=== PATIENT | male | born 1955 | race Caucasian/White ===

== ENCOUNTER 2016-06-10 23:57 | Inpatient (IN) | payer OTHER ==
[~2016-06-10] VITALS: Ht 172.7 cm; Wt 81.6 kg
[~2016-06-10 23:57] MED LIST: ASPI81TA2 PO; CHOL20004 PO; DOCU-170 PO; LEVE100S PO; PANT40TA4 PO; POLY119P2 PO
[2016-06-11] MEDS ORDERED: MORPHINE SULFATE INJ 4 MG/ML DISP.SYRIN ONE (01:07)
[2016-06-11] MEDS ORDERED: IV NS 0.9% 1,000 ML ONE (01:08)
[2016-06-11] MEDS ORDERED: IV SET PRIMARY 1 EA INFUS.SET MC ONE (01:08)
[2016-06-11] MEDS ORDERED: ONDANSETRON HCL/PF 4 MG/2 ML VIAL ONE (01:08)
[2016-06-11 01:17] LABS: BASOPHILS # (AUTO) 0.1 /CMM (0.0-0.2); BASOPHILS % (AUTO) 0.7 % (0.0-2.0); DIFF TOTAL % 100 %; EOSINOPHILS # (AUTO) 0.2 /CMM (0.0-0.7); EOSINOPHILS % (AUTO) 2.5 % (0.0-6.0); HEMATOCRIT 42 % (39-51); HEMOGLOBIN 13.9 g/dL (13.5-17.5); LYMPHOCYTES # (AUTO) 2.4 /CMM (0.8-4.8); LYMPHOCYTES % (AUTO) 25.1 % (20.0-44.0); MEAN CORPUSCULAR HEMOGLOBIN 30 PG (26.0-33.0); MEAN CORPUSCULAR HGB CONC 33 g/dl (31.0-36.0); MEAN CORPUSCULAR VOLUME 89 fL (80-96); MONOCYTES # (AUTO) 0.7 /CMM (0.1-1.30); MONOCYTES % (AUTO) 7.2 % (2.0-12.0); NEUTROPHILS # (AUTO) 6.2 /CMM (1.8-8.9); NEUTROPHILS % (AUTO) 64.5 % (43.0-81.0); PLATELET COUNT (AUTO) 250 /CMM (150-450); RED BLOOD CELL COUNT(AUTO) 4.67 MIL/uL (4.5-6.0); WHITE BLOOD COUNT (AUTO) 9.6 K/uL (4.3-11.0)
[2016-06-11 01:25] LABS: ANION GAP 10 (5-14); CALCIUM, SERUM 8.7 mg/dL (8.5-10.1); CARBON DIOXIDE 30 mmol/L (21-32); CHLORIDE 107 mmol/L (98-107); CREATININE 0.9 mg/dL (0.6-1.3); GFR 86 mL/min (>60); GLUCOSE 101 mg/dL (74-106); POTASSIUM 3.8 mmol/L (3.5-5.1); SODIUM SERUM 143 mmol/L (136-145); UREA NITROGEN, BLOOD 17 mg/dL (7-18)
[2016-06-11] MEDS ORDERED: ONDANSETRON HCL/PF 4 MG/2 ML VIAL IVP ONE (01:30)
[2016-06-11] MEDS ORDERED: IV NS 0.9% 1,000 ML BAG IV ONE (01:30)
[2016-06-11] MEDS ORDERED: MORPHINE SULFATE INJ 2 MG/ML DISP.SYRIN IV ONE (01:30)
[2016-06-11 01:32] LABS: ALANINE AMINOTRANSFERASE 22 U/L (12-78); ALBUMIN 3.7 g/dL (3.4-5.0); ASPARTATE AMINOTRANSFERASE 16 U/L (15-37); BILIRUBIN,DIRECT 0.1 mg/dL (0.0-0.2); BILIRUBIN,TOTAL 0.2 mg/dL (0.2-1.0); INDIRECT BILIRUBIN 0.1 mg/dL (0.0-1.1); TOTAL PROTEIN, SERUM 7.2 g/dL (6.4-8.2); TROPONIN I < 0.017 ng/mL (0.00-0.056)
[2016-06-11] MEDS ORDERED: IV NS 0.9% 1,000 ML IV PRN (05:46)
[2016-06-11] MEDS ORDERED: ONDANSETRON HCL/PF 4 MG/2 ML VIAL IVP PRN (06:00)
[2016-06-11] MEDS ORDERED: MAGNESIUM HYDROXIDE 30 ML UDC PO PRN (06:00)
[2016-06-11] MEDS ORDERED: ZOLPIDEM TARTRATE 5 MG TABLET PO PRN (06:00)
[2016-06-11] MEDS ORDERED: Z GUARD REMEDY 2 OZ OINT TP PRN (06:00)
[2016-06-11] MEDS ORDERED: MAG HYDROX/AL HYDROX/SIMETH 30 ML UDC PO PRN (06:00)
[2016-06-11 06:09] VITALS: BP 124/75
[2016-06-11] MEDS ORDERED: HYDROCODONE/APAP 5/325MG 1 EACH TABLET ONE (06:35)
[2016-06-11] MEDS: HYDROCODONE/APAP 5/325MG 1 EACH TABLET PO PRN ×2 (06:41→10:55)
[2016-06-11] MEDS ORDERED: PANTOPRAZOLE 40 MG TABLET.DR PO SCH (07:30)
[2016-06-11 08:00] VITALS: BP 115/70
[2016-06-11] MEDS ORDERED: IV SET PRIMARY PUMP SET 1 EA INFUS.SET MC ONE (09:15)
[2016-06-11] MEDS: DOCUSATE SODIUM 100 MG CAPSULE PO SCH ×2 (09:19→16:38)
[2016-06-11] MEDS: ASPIRIN 81 MG TAB.CHEW PO SCH (09:20)
[2016-06-11] MEDS: PANTOPRAZOLE 40 MG TABLET.DR PO SCH (09:20)
[2016-06-11] MEDS: CHOLECALCIFEROL 1,000 UNIT TABLET (VIT D3) PO SCH (09:20)
[2016-06-11] MEDS: POLYETHYLENE GLYCOL 3350 17 GM POWD.PACK PO SCH (09:20)
[2016-06-11] MEDS: LEVETIRACETAM SOL (5 ML) 100 MG/ML UDC PO SCH ×2 (09:20→16:38)
[2016-06-11 16:00] VITALS: BP 128/77
[2016-06-11 16:20] LABS: BASOPHILS % (AUTO) 0.6 % (0.0-2.0); DIFF TOTAL % 100 %; EOSINOPHILS # (AUTO) 0.2 /CMM (0.0-0.7); EOSINOPHILS % (AUTO) 2.5 % (0.0-6.0); HEMATOCRIT 41 % (39-51); HEMOGLOBIN 13.8 g/dL (13.5-17.5); LYMPHOCYTES # (AUTO) 2.2 /CMM (0.8-4.8); LYMPHOCYTES % (AUTO) 29.5 % (20.0-44.0); MEAN CORPUSCULAR HEMOGLOBIN 30 PG (26.0-33.0); MEAN CORPUSCULAR HGB CONC 34 g/dl (31.0-36.0); MEAN CORPUSCULAR VOLUME 89 fL (80-96); MONOCYTES # (AUTO) 0.6 /CMM (0.1-1.30); MONOCYTES % (AUTO) 7.3 % (2.0-12.0); NEUTROPHILS # (AUTO) 4.6 /CMM (1.8-8.9); NEUTROPHILS % (AUTO) 60.1 % (43.0-81.0); PLATELET COUNT (AUTO) 215 /CMM (150-450); RED BLOOD CELL COUNT(AUTO) 4.62 MIL/uL (4.5-6.0); WHITE BLOOD COUNT (AUTO) 7.6 K/uL (4.3-11.0)
[2016-06-11 16:31] LABS: CALCIUM, SERUM 8.4 mg/dL (8.5-10.1); CREATININE 0.9 mg/dL (0.6-1.3)
[2016-06-11 16:39] LABS: ALBUMIN 3.4 g/dL (3.4-5.0); BILIRUBIN,DIRECT 0.1 mg/dL (0.0-0.2); BILIRUBIN,TOTAL 0.5 mg/dL (0.2-1.0); INDIRECT BILIRUBIN 0.4 mg/dL (0.0-1.1); INR 1.05 (0.87-1.13); PROTHROMBIN TIME 11.3 SECS (9.5-12.7); TOTAL PROTEIN, SERUM 6.4 g/dL (6.4-8.2)
[2016-06-11] MEDS: HYDROMORPHONE 1 MG/1 ML DISP.SYRIN IV PRN (16:39)
[2016-06-11 16:42] LABS: LACTIC ACID 0.6 mmol/L (0.4-2.0)
[2016-06-11] MEDS: IV NS 0.9% 1,000 ML IV PRN ×2 (16:50→23:31)
[2016-06-11 20:00] VITALS: BP 107/58
[2016-06-11 20:52] LABS: ADD UA MICROSCOPIC NO; KETONES,URINE NEGATIVE (NEGATIVE); LEUKOCYTE ESTERASE ,URINE NEGATIVE (NEGATIVE)
[2016-06-12] MEDS: IV NS 0.9% 1,000 ML IV PRN ×2 (05:08→10:27)
[2016-06-12 06:10] LABS: BASOPHILS % (AUTO) 0.8 % (0.0-2.0); DIFF TOTAL % 100 %; EOSINOPHILS # (AUTO) 0.2 /CMM (0.0-0.7); EOSINOPHILS % (AUTO) 2.7 % (0.0-6.0); HEMATOCRIT 40 % (39-51); HEMOGLOBIN 13.3 g/dL (13.5-17.5); LYMPHOCYTES # (AUTO) 1.7 /CMM (0.8-4.8); LYMPHOCYTES % (AUTO) 28.7 % (20.0-44.0); MEAN CORPUSCULAR HEMOGLOBIN 30 PG (26.0-33.0); MEAN CORPUSCULAR HGB CONC 33 g/dl (31.0-36.0); MEAN CORPUSCULAR VOLUME 90 fL (80-96); MONOCYTES # (AUTO) 0.5 /CMM (0.1-1.30); MONOCYTES % (AUTO) 7.7 % (2.0-12.0); NEUTROPHILS # (AUTO) 3.5 /CMM (1.8-8.9); NEUTROPHILS % (AUTO) 60.1 % (43.0-81.0); PLATELET COUNT (AUTO) 207 /CMM (150-450); RED BLOOD CELL COUNT(AUTO) 4.51 MIL/uL (4.5-6.0); WHITE BLOOD COUNT (AUTO) 5.9 K/uL (4.3-11.0)
[2016-06-12 06:16] LABS: CALCIUM, SERUM 8.3 mg/dL (8.5-10.1); CREATININE 0.8 mg/dL (0.6-1.3); POTASSIUM 3.7 mmol/L (3.5-5.1)
[2016-06-12 06:19] LABS: INR 1.04 (0.87-1.13); PROTHROMBIN TIME 11.2 SECS (9.5-12.7)
[2016-06-12 06:24] LABS: ALBUMIN 3.1 g/dL (3.4-5.0); BILIRUBIN,DIRECT 0.1 mg/dL (0.0-0.2); BILIRUBIN,TOTAL 0.5 mg/dL (0.2-1.0); INDIRECT BILIRUBIN 0.4 mg/dL (0.0-1.1); PHOSPHORUS 3.3 mg/dL (2.5-4.9); TOTAL PROTEIN, SERUM 6.1 g/dL (6.4-8.2)
[2016-06-12 08:00] VITALS: BP 116/80
[2016-06-12] MEDS: ASPIRIN 81 MG TAB.CHEW PO SCH (09:23)
[2016-06-12] MEDS: DOCUSATE SODIUM 100 MG CAPSULE PO SCH ×2 (09:23→16:28)
[2016-06-12] MEDS: LEVETIRACETAM SOL (5 ML) 100 MG/ML UDC PO SCH ×2 (09:24→16:28)
[2016-06-12] MEDS: PANTOPRAZOLE 40 MG TABLET.DR PO SCH (09:24)
[2016-06-12] MEDS: CHOLECALCIFEROL 1,000 UNIT TABLET (VIT D3) PO SCH (09:24)
[2016-06-12] MEDS: POLYETHYLENE GLYCOL 3350 17 GM POWD.PACK PO SCH (09:24)
[2016-06-12] MEDS: HYDROMORPHONE 1 MG/1 ML DISP.SYRIN IV PRN ×2 (14:20→20:12)
[2016-06-12 16:00] VITALS: BP 141/88
[2016-06-12] MEDS: HYDROCODONE/APAP 5/325MG 1 EACH TABLET PO PRN (16:33)
[2016-06-12 16:50] VITALS: BP 141/88
[2016-06-12 20:00] VITALS: BP 131/82
[2016-06-13] MEDS: IV NS 0.9% 1,000 ML IV PRN ×2 (05:26→21:10)
[2016-06-13 08:00] VITALS: BP 118/68
[2016-06-13] MEDS: DOCUSATE SODIUM 100 MG CAPSULE PO SCH ×2 (08:35→17:37)
[2016-06-13] MEDS: PANTOPRAZOLE 40 MG TABLET.DR PO SCH (08:35)
[2016-06-13] MEDS: CHOLECALCIFEROL 1,000 UNIT TABLET (VIT D3) PO SCH (08:36)
[2016-06-13] MEDS: ASPIRIN 81 MG TAB.CHEW PO SCH (08:36)
[2016-06-13] MEDS: LEVETIRACETAM SOL (5 ML) 100 MG/ML UDC PO SCH ×2 (08:36→17:37)
[2016-06-13] MEDS: POLYETHYLENE GLYCOL 3350 17 GM POWD.PACK PO SCH (08:37)
[2016-06-13] MEDS: HYDROCODONE/APAP 5/325MG 1 EACH TABLET PO PRN ×2 (08:51→22:54)
[2016-06-13] MEDS: ACETAMINOPHEN 325 MG TABLET PO PRN (13:32)
[2016-06-13 13:39] LABS: CALCIUM, SERUM 8.5 mg/dL (8.5-10.1); POTASSIUM 3.9 mmol/L (3.5-5.1)
[2016-06-13 13:46] LABS: ALBUMIN 3.3 g/dL (3.4-5.0); BILIRUBIN,DIRECT 0.1 mg/dL (0.0-0.2); BILIRUBIN,TOTAL 0.4 mg/dL (0.2-1.0); INDIRECT BILIRUBIN 0.3 mg/dL (0.0-1.1); TOTAL PROTEIN, SERUM 6.4 g/dL (6.4-8.2)
[2016-06-13 16:00] VITALS: BP 122/69
[2016-06-13 20:00] VITALS: BP 128/72
[2016-06-14 07:13] LABS: CALCIUM, SERUM 8.5 mg/dL (8.5-10.1); CREATININE 0.9 mg/dL (0.6-1.3); POTASSIUM 3.9 mmol/L (3.5-5.1)
[2016-06-14 08:00] VITALS: BP 134/80
[2016-06-14] MEDS: LEVETIRACETAM SOL (5 ML) 100 MG/ML UDC PO SCH ×2 (08:38→16:07)
[2016-06-14] MEDS: CHOLECALCIFEROL 1,000 UNIT TABLET (VIT D3) PO SCH (08:38)
[2016-06-14] MEDS: POLYETHYLENE GLYCOL 3350 17 GM POWD.PACK PO SCH (08:39)
[2016-06-14] MEDS: DOCUSATE SODIUM 100 MG CAPSULE PO SCH ×2 (08:39→16:07)
[2016-06-14] MEDS: PANTOPRAZOLE 40 MG TABLET.DR PO SCH (08:39)
[2016-06-14] MEDS: ASPIRIN 81 MG TAB.CHEW PO SCH (08:39)
[2016-06-14] MEDS: IV NS 0.9% 1,000 ML IV PRN (08:40)
[2016-06-14] MEDS: ACETAMINOPHEN 325 MG TABLET PO PRN (16:07)
== END 2016-06-14 16:20 | DRG 439 ==
LOC: ER 06-11 00:08 → MEDSG2 06-11 05:16
PROVIDERS: ADMIT Internal Medicine; ATTEND Internal Medicine
DX: K85.90 Acute pancreatitis without necrosis or infection, unspecified (principal); J90 Pleural effusion, not elsewhere classified; G40.909 Epilepsy, unspecified, not intractable, without status epilepticus; K21.9 Gastro-esophageal reflux disease without esophagitis; M48.06 Spinal stenosis, lumbar region; Z86.73 Personal history of transient ischemic attack (TIA), and cerebral infarction without residual deficits; Z95.0 Presence of cardiac pacemaker; R47.1 Dysarthria and anarthria; J84.10 Pulmonary fibrosis, unspecified
CPT/HCPCS: 36415; 80048-TC; 80061-TC; 80076-TC; 81000-TC; 82550-TC; 83605-TC; 83690-TC; 83735-TC; 84100-TC; 84484-TC; 85025-TC; 85610-TC; 87081-TC; A4606; J1170; J1953; J2270; J2405; J7030; Z7610

== ENCOUNTER 2016-11-11 18:47 | Inpatient (IN) | payer MEDICAID, OTHER ==
[~2016-11-11] VITALS: Ht 182.9 cm; Wt 84.4 kg
--- NOTE | 2016-11-11 19:01 | NUR ---
PT SVETLANA 41 FROM [facility] FOR SOB. PT ANSWERS TO YES AND NO QUESTIONS. RR EVEN AND UNLABORED. PT 02 SAT 96% ON ROOM AIR. NO SOB NOTD. NAD NOTED. PT DENIES CP AT THIS TIME. NO NVD AT THIS TIME. PT NOT DIAPHORETIC. PT GOWNED AND PLACED ON MONITOR. IV STARTED ON LEFT FA 20G. LABS DRAWN. AND SENT TO LAB
--- NOTE | 2016-11-11 19:02 | NUR ---
PT NOTED WITH RIGHT SIDED WEAKNESS HX OF STROKE.
[2016-11-11] MEDS ORDERED: DOCU250C75 PO (19:08)
[2016-11-11] MEDS ORDERED: HYDR-3976 PO (19:08)
[2016-11-11] MEDS ORDERED: DIPH25CA6 PO (19:08)
[2016-11-11] MEDS ORDERED: MAG30ORA PO (19:08)
[2016-11-11] MEDS ORDERED: MAGN400O6 PO (19:08)
[2016-11-11] MEDS ORDERED: AMYL1CAP60 PO (19:08)
[2016-11-11] MEDS ORDERED: MELA5TAB PO (19:08)
[2016-11-11] MEDS ORDERED: FAMO20TA8 PO (19:08)
[2016-11-11] MEDS ORDERED: SIMV20TA6 PO (19:08)
[2016-11-11] MEDS ORDERED: ACET325T53 PO (19:08)
[2016-11-11 19:15] LABS: CALCIUM, SERUM 9.2 mg/dL (8.5-10.1); CARBON DIOXIDE 32 mmol/L (21-32); CHLORIDE 107 mmol/L (98-107); CREATININE 0.9 mg/dL (0.6-1.3); GLUCOSE 96 mg/dL (74-106); SODIUM SERUM 143 mmol/L (136-145); UREA NITROGEN, BLOOD 11 mg/dL (7-18)
[2016-11-11 19:16] LABS: BASOPHILS % (AUTO) 0.3 % (0.0-2.0); EOSINOPHILS # (AUTO) 0.4 /CMM (0.0-0.7); EOSINOPHILS % (AUTO) 5.2 % (0.0-6.0); HEMATOCRIT 39 % (39-51); HEMOGLOBIN 13.4 g/dL (13.5-17.5); LYMPHOCYTES # (AUTO) 2.2 /CMM (0.8-4.8); MEAN CORPUSCULAR HEMOGLOBIN 30 PG (26.0-33.0); MEAN CORPUSCULAR HGB CONC 35 g/dl (31.0-36.0); MEAN CORPUSCULAR VOLUME 88 fL (80-96); MONOCYTES # (AUTO) 0.6 /CMM (0.1-1.30); MONOCYTES % (AUTO) 7.4 % (2.0-12.0); NEUTROPHILS # (AUTO) 4.4 /CMM (1.8-8.9); NEUTROPHILS % (AUTO) 58.1 % (43.0-81.0); PLATELET COUNT (AUTO) 250 /CMM (150-450); RDW COEFFICIENT OF VARIATION 12.9 (11.5-15.0); RED BLOOD CELL COUNT(AUTO) 4.42 MIL/uL (4.5-6.0); WHITE BLOOD COUNT (AUTO) 7.6 K/uL (4.3-11.0)
[2016-11-11 19:23] LABS: TROPONIN I < 0.017 ng/mL (0.00-0.056)
[2016-11-11 19:28] LABS: B-TYPE NATRIURETIC PEPTIDE 71 PG/ML (0-125)
--- NOTE | 2016-11-11 19:31 | NUR ---
XRAY AT BEDSIDE.
--- NOTE | 2016-11-11 19:33 | NUR ---
CALLED NURSING SUP. FOR TELE BED
[2016-11-11 19:36] LABS: INR 1.02 (0.87-1.13); PROTHROMBIN TIME 10.6 SECS (9.5-12.7)
[2016-11-11] MEDS ORDERED: ASPIRIN 325 MG TABLET ONE (19:49)
--- NOTE | 2016-11-11 19:52 | NUR ---
DR.RUTHERFORD DANELLE TELEPHONE BETTING CLERK
--- NOTE | 2016-11-11 19:53 | NUR ---
DR. PRECIADO SPEAKING TO DR. JONES REGARDING ADMISSION.
[2016-11-11] MEDS ORDERED: ASPIRIN 325 MG TABLET PO ONE (20:00)
--- NOTE | 2016-11-11 20:01 | NUR ---
PT ASSIGNED TO 324-[facility].
--- NOTE | 2016-11-11 20:15 | NUR ---
REPROT GIVEN TO RN JUAN ALBERTO FOR TELE BED 328-1
--- NOTE | 2016-11-11 20:18 | NUR ---
PT TRANSFERED PER [facility]S PROTOCOL TO [facility] BED 328-2
[2016-11-11 20:25] VITALS: BP 132/84
[2016-11-11] MEDS ORDERED: ACETAMINOPHEN 325 MG TABLET PO PRN (20:30)
[2016-11-11] MEDS ORDERED: diphenhydrAMINE HCL 25 MG CAPSULE PO PRN (20:30)
[2016-11-11] MEDS ORDERED: MAG HYDROX/AL HYDROX/SIMETH 30 ML UDC PO PRN ×2 (20:30→21:00)
[2016-11-11] MEDS ORDERED: MAGNESIUM HYDROXIDE 30 ML UDC PO PRN ×2 (20:30→21:00)
--- NOTE | 2016-11-11 20:30 | NUR ---
DIESEL TECHNOLOGY INSTRUCTOR ADMIT PT ARRIVED ON UNIT. FOLLOWS SIMPLE COMMANDS AND NODS TO QUESTIONS. ASSESSMENT LIMITED DUE TO PT COGNITIVE STATUS. DENIES CP, NO S/S OF RESPIRATORY DISTRESS. NO WHEEZING SOB/NOTED. TELE SHOWS SR IN 60'S. VSS. UNSTEADY GAIT. SKIN ASSESSMENT COMPLETE. ORIENTATED TO UNIT AND CALL LIGHT. BED ALARM ON. WILL CONT TO MONITOR.
[2016-11-11] MEDS ORDERED: MORPHINE SULFATE INJ 2 MG/ML DISP.SYRIN IV PRN (21:00)
[2016-11-11] MEDS ORDERED: HYDROCODONE/APAP 5/325MG 1 EACH TABLET PO PRN (21:00)
[2016-11-11] MEDS ORDERED: ZOLPIDEM TARTRATE 5 MG TABLET PO PRN (21:00)
[2016-11-11] MEDS ORDERED: Z GUARD REMEDY 2 OZ OINT TP PRN (21:00)
[2016-11-11] MEDS ORDERED: ONDANSETRON HCL/PF 4 MG/2 ML VIAL IVP PRN (21:00)
[2016-11-11] MEDS ORDERED: Medication Not On Formulary EA (Melatonin 5 MG) PO SCH (22:00)
[2016-11-11] MEDS: DOCUSATE SODIUM 250 MG CAPSULE PO SCH (22:17)
[2016-11-11] MEDS: SIMVASTATIN 20 MG TABLET PO SCH (22:17)
[2016-11-11] MEDS: NITROGLYCERIN PACKET 1 GM PACKET TOP SCH (22:18)
[2016-11-11] MEDS: ENOXAPARIN SODIUM 40 MG/0.4 ML DISP.SYRIN SQ SCH (22:19)
[2016-11-12] VITALS: BP 136/74
[2016-11-12 04:00] VITALS: BP 112/63
[2016-11-12] MEDS: NITROGLYCERIN PACKET 1 GM PACKET TOP SCH ×3 (04:59→21:00)
--- NOTE | 2016-11-12 06:40 | NUR ---
RN NOTE NO SIGNIFICANT CHANGES AT NIGHT. PT APPEARS COMFORTABLE, NO S/S OF ANY DISTRESS AT THIS TIME. TELE SHOWS SR IN 60'S. SKIN WARM TO TOUCH, NON-DIAPHORETIC. BREATHING NON-LABORED AND EVEN. IV INTACT AND PATENT. CALL LIGHT IN REACH, WILL F/U WITH DAY SHIFT FOR [place]ER[place]T.
[2016-11-12] MEDS ORDERED: PANTOPRAZOLE 40 MG TABLET.DR PO SCH (07:30)
--- NOTE | 2016-11-12 07:30 | NUR ---
TELE / RN OPEN NOTES RECEIVED REPORT FROM TREE FELLER OPERATOR NURSE. PATIENT IS IN BED, AWAKE. ORIENTED TO NAME ONLY. BED IN LOW POSITION, LOCKED AND 2 SIDE RAILS ARE UP. 2L NC OXYGEN. WILL CONTINUE TO MONITOR AND ASSESS PATIENT THROUGH OUT MY SHIFT
[2016-11-12 07:44] LABS: BASOPHILS % (AUTO) 0.3 % (0.0-2.0); EOSINOPHILS # (AUTO) 0.3 /CMM (0.0-0.7); EOSINOPHILS % (AUTO) 3.3 % (0.0-6.0); HEMATOCRIT 39 % (39-51); HEMOGLOBIN 13.2 g/dL (13.5-17.5); LYMPHOCYTES # (AUTO) 1.6 /CMM (0.8-4.8); LYMPHOCYTES % (AUTO) 20.4 % (20.0-44.0); MEAN CORPUSCULAR HEMOGLOBIN 30 PG (26.0-33.0); MEAN CORPUSCULAR HGB CONC 34 g/dl (31.0-36.0); MEAN CORPUSCULAR VOLUME 90 fL (80-96); MONOCYTES # (AUTO) 0.6 /CMM (0.1-1.30); MONOCYTES % (AUTO) 7.2 % (2.0-12.0); NEUTROPHILS # (AUTO) 5.5 /CMM (1.8-8.9); NEUTROPHILS % (AUTO) 68.8 % (43.0-81.0); PLATELET COUNT (AUTO) 224 /CMM (150-450); RDW COEFFICIENT OF VARIATION 13.6 (11.5-15.0); RED BLOOD CELL COUNT(AUTO) 4.37 MIL/uL (4.5-6.0); WHITE BLOOD COUNT (AUTO) 7.9 K/uL (4.3-11.0)
[2016-11-12 08:00] VITALS: BP 95/61
[2016-11-12 08:00] LABS: CALCIUM, SERUM 8.5 mg/dL (8.5-10.1); CREATININE 0.7 mg/dL (0.6-1.3); MAGNESIUM 1.7 mg/dL (1.8-2.4); PHOSPHORUS 4.2 mg/dL (2.5-4.9); POTASSIUM 3.9 mmol/L (3.5-5.1)
[2016-11-12] MEDS: POTASSIUM CHLORIDE 20 MEQ TAB.PRT.SR PO SCH ×2 (10:43→10:51)
[2016-11-12] MEDS: LEVETIRACETAM SOL (5 ML) 100 MG/ML UDC PO SCH ×2 (10:44→17:05)
[2016-11-12] MEDS: CHOLECALCIFEROL 1,000 UNIT TABLET (VIT D3) PO SCH (10:44)
[2016-11-12] MEDS: POLYETHYLENE GLYCOL 3350 17 GM POWD.PACK PO SCH (10:44)
[2016-11-12] MEDS: ASPIRIN 81 MG TAB.CHEW PO SCH (10:44)
[2016-11-12] MEDS: FAMOTIDINE (20 MG) 20 MG TABLET PO SCH (10:44)
[2016-11-12] MEDS ORDERED: IV SET PRIMARY PUMP SET 1 EA INFUS.SET MC ONE (10:57)
[2016-11-12] MEDS: IV NS 0.9% 1,000 ML IV PRN (11:03)
[2016-11-12] MEDS ORDERED: SECONDARY IV SET 1 EA INFUS.SET MC ONE (12:08)
[2016-11-12] MEDS: LIPASE/PROTEASE/AMYLASE 1 EACH CAPSULE.DR PO SCH ×2 (12:15→17:05)
[2016-11-12] MEDS: Magnesium 1GM/D5W 100ML PREMIX 100 ML IV SCH ×2 (12:16→12:58)
[2016-11-12 16:00] VITALS: BP 106/63
--- NOTE | 2016-11-12 18:57 | NUR ---
RN CLOSING NOTES PATIENT IS IN BED, ALERT AND ORIENTED TO NAME, PLACE AND TIME. BED IN LOW POSITION, LOCKED AND 2 SIDE RAILS ARE UP. PATIENT KEPT CLEAN AND DRY. ALL NEEDS ANTICIPATED. NO SIGNS AND SYMPTOMS OF DISTRESS. DENIED PAIN. MAGNESIUM REPLACED. WILL ENDORSE TO COLLECTION CARD CLERK NURSE.
[2016-11-12 20:00] VITALS: BP 106/65
[2016-11-12] MEDS: SIMVASTATIN 20 MG TABLET PO SCH (21:37)
[2016-11-12] MEDS: DOCUSATE SODIUM 250 MG CAPSULE PO SCH (21:37)
[2016-11-12] MEDS: ENOXAPARIN SODIUM 40 MG/0.4 ML DISP.SYRIN SQ SCH (21:42)
[2016-11-13] MEDS ORDERED: IV NS 0.9% 1,000 ML ONE (00:11)
--- NOTE | 2016-11-13 07:45 | NUR ---
RN MS NOTES RECEIVED PATIENT IN BED, A/O X 1-2, NO APPARENT DISTRESS NOTED, DENIES CHEST PAIN, DENIES SOB. IV LINE ON LEFT FORE ARM PATENT, INFUSING NS AT 75CC/HR. ALL NEEDS MET, KEPT CLEAN AND DRY, CALL LIGHT WITHIN REACH.
[2016-11-13 08:00] VITALS: BP 100/61
[2016-11-13 08:00] LABS: BASOPHILS % (AUTO) 0.2 % (0.0-2.0); EOSINOPHILS # (AUTO) 0.2 /CMM (0.0-0.7); EOSINOPHILS % (AUTO) 2.3 % (0.0-6.0); HEMATOCRIT 42 % (39-51); LYMPHOCYTES # (AUTO) 1.7 /CMM (0.8-4.8); MEAN CORPUSCULAR HEMOGLOBIN 30 PG (26.0-33.0); MEAN CORPUSCULAR HGB CONC 33 g/dl (31.0-36.0); MEAN CORPUSCULAR VOLUME 91 fL (80-96); MONOCYTES # (AUTO) 0.6 /CMM (0.1-1.30); MONOCYTES % (AUTO) 5.5 % (2.0-12.0); NEUTROPHILS # (AUTO) 7.5 /CMM (1.8-8.9); PLATELET COUNT (AUTO) 226 /CMM (150-450); RDW COEFFICIENT OF VARIATION 13.9 (11.5-15.0); RED BLOOD CELL COUNT(AUTO) 4.68 MIL/uL (4.5-6.0)
[2016-11-13 08:19] LABS: ALBUMIN 3.4 g/dL (3.4-5.0); BILIRUBIN,TOTAL 0.4 mg/dL (0.2-1.0); CALCIUM, SERUM 8.5 mg/dL (8.5-10.1); CREATININE 0.8 mg/dL (0.6-1.3); MAGNESIUM 1.8 mg/dL (1.8-2.4); PHOSPHORUS 3.3 mg/dL (2.5-4.9); POTASSIUM 3.9 mmol/L (3.5-5.1); TOTAL PROTEIN, SERUM 7.2 g/dL (6.4-8.2)
[2016-11-13] MEDS: FAMOTIDINE (20 MG) 20 MG TABLET PO SCH (08:43)
[2016-11-13] MEDS: LIPASE/PROTEASE/AMYLASE 1 EACH CAPSULE.DR PO SCH ×3 (08:43→17:20)
[2016-11-13] MEDS: LEVETIRACETAM SOL (5 ML) 100 MG/ML UDC PO SCH ×2 (08:43→17:20)
[2016-11-13] MEDS: ASPIRIN 81 MG TAB.CHEW PO SCH (08:43)
[2016-11-13] MEDS: POLYETHYLENE GLYCOL 3350 17 GM POWD.PACK PO SCH (08:44)
[2016-11-13] MEDS: CHOLECALCIFEROL 1,000 UNIT TABLET (VIT D3) PO SCH (08:44)
--- NOTE | 2016-11-13 12:00 | NUR ---
MELISA LAWLER, POSTING MACHINE OPERATOR FOR [employer] CAME TO CHECK THE PACE MAKER. PER NURIS, THE DEVICE IS NOT FROM THEIR COMPANY. HE CALLED AND FOUND OUT THAT THE COMPANY THAT THE DEVICE BELONG TO IS [employer]. PER NURIS A REP WILL COME LATER TO DO THE CHECK.
[2016-11-13] MEDS: NITROGLYCERIN PACKET 1 GM PACKET TOP SCH ×2 (12:25→21:00)
--- NOTE | 2016-11-13 13:30 | NUR ---
MELISA MATSON NOTES RECEIVED A CALL FROM JUANA GARCIA FROM [place], WITH ETA OF 3-4 PM.
[2016-11-13] MEDS: IV NS 0.9% 1,000 ML IV PRN (14:30)
[2016-11-13 16:00] VITALS: BP 110/69
--- NOTE | 2016-11-13 18:42 | NUR ---
RN MS CLOSING NOTES PATIENT IN BED, A/O X 2, IN NO APPARENT DISTRESS, DENIES PAIN, DENIES SOB. ALL DUE MEDS GIVEN, ALL NEEDS MET. IV LINE ON LEFT FOREARM PATENT INFUSING NS AT 75ML/HR. PACE MAKER WAS CHECKED TODAY, PER JOSUE ITS WORKING FINE, COPY OF REPORT LEFT IN CHART. WILL ENDORSE CARE TO PM SHIFT.
[2016-11-13 20:00] VITALS: BP 96/55
[2016-11-13] MEDS: DOCUSATE SODIUM 250 MG CAPSULE PO SCH (21:18)
[2016-11-13] MEDS: SIMVASTATIN 20 MG TABLET PO SCH (21:18)
[2016-11-13] MEDS: ENOXAPARIN SODIUM 40 MG/0.4 ML DISP.SYRIN SQ SCH (21:24)
[2016-11-14] MEDS ORDERED: IV NS 0.9% 1,000 ML ONE (03:43)
[2016-11-14] MEDS: NITROGLYCERIN PACKET 1 GM PACKET TOP SCH ×2 (05:00→13:00)
[2016-11-14 08:00] VITALS: BP 114/71
--- NOTE | 2016-11-14 08:00 | NUR ---
MS RN RECEIVED ON BED, AWAKE,ALERT,ORIENTED X3,NOT IN ANY FORM OF DISTRESS, RESPIRATIONS EVEN AND UNLABORED,NO SOB NOTED, LUNGS ARE CLEAR,ABDOMEN SOFT,POSITIVE BOWEL SOUNDS, DENIES PAIN AT THIS TIME,NOTED TO HAVE RIGHT SIDED WEAKNESS, WILL MONITOR PATIENT'S CONDITION.
[2016-11-14] MEDS: POLYETHYLENE GLYCOL 3350 17 GM POWD.PACK PO SCH (09:44)
[2016-11-14] MEDS: CHOLECALCIFEROL 1,000 UNIT TABLET (VIT D3) PO SCH (09:44)
[2016-11-14] MEDS: FAMOTIDINE (20 MG) 20 MG TABLET PO SCH (09:44)
[2016-11-14] MEDS: ASPIRIN 81 MG TAB.CHEW PO SCH (09:44)
[2016-11-14] MEDS: LIPASE/PROTEASE/AMYLASE 1 EACH CAPSULE.DR PO SCH ×2 (09:44→13:00)
[2016-11-14] MEDS: LEVETIRACETAM SOL (5 ML) 100 MG/ML UDC PO SCH (09:44)
--- NOTE | 2016-11-14 09:50 | NUR ---
MS VINCENT BREAKFAST SERVED,DUE MEDS GIVEN TOLERATED WELL.
[2016-11-14 10:15] LABS: BASOPHILS % (AUTO) 0.3 % (0.0-2.0); EOSINOPHILS # (AUTO) 0.3 /CMM (0.0-0.7); EOSINOPHILS % (AUTO) 4.3 % (0.0-6.0); HEMATOCRIT 42 % (39-51); HEMOGLOBIN 13.9 g/dL (13.5-17.5); LYMPHOCYTES # (AUTO) 1.5 /CMM (0.8-4.8); MEAN CORPUSCULAR HEMOGLOBIN 30 PG (26.0-33.0); MEAN CORPUSCULAR HGB CONC 33 g/dl (31.0-36.0); MEAN CORPUSCULAR VOLUME 89 fL (80-96); MONOCYTES # (AUTO) 0.4 /CMM (0.1-1.30); MONOCYTES % (AUTO) 7.3 % (2.0-12.0); NEUTROPHILS # (AUTO) 3.7 /CMM (1.8-8.9); NEUTROPHILS % (AUTO) 63.1 % (43.0-81.0); PLATELET COUNT (AUTO) 203 /CMM (150-450); RDW COEFFICIENT OF VARIATION 13.9 (11.5-15.0); WHITE BLOOD COUNT (AUTO) 5.9 K/uL (4.3-11.0)
[2016-11-14 10:45] LABS: CALCIUM, SERUM 8.8 mg/dL (8.5-10.1); CREATININE 0.8 mg/dL (0.6-1.3); POTASSIUM 3.9 mmol/L (3.5-5.1)
[2016-11-14 10:50] LABS: ALBUMIN 3.2 g/dL (3.4-5.0); BILIRUBIN,TOTAL 0.3 mg/dL (0.2-1.0); MAGNESIUM 1.8 mg/dL (1.8-2.4); PHOSPHORUS 2.7 mg/dL (2.5-4.9); TOTAL PROTEIN, SERUM 6.9 g/dL (6.4-8.2)
--- NOTE | 2016-11-14 11:30 | NUR ---
MS RN WAS SEEN BY MELISSA DEJESUS, W/ ORDER TO BE DISCHARGE TODAY.
[2016-11-14 16:00] VITALS: BP 118/81
--- NOTE | 2016-11-14 17:41 | NUR ---
MS RN PATIENT WAS TRANSFERRED TO [facility],ALL NEEDS ATTENDED.
== END 2016-11-14 17:30 | DRG 203 ==
LOC: ER 18:54 → TELE 20:09 → MED 11-12 09:48
PROVIDERS: ADMIT Internal Medicine; ATTEND Internal Medicine
DX: M94.0 Chondrocostal junction syndrome [Tietze] (principal); G93.40 Encephalopathy, unspecified; I69.851 Hemiplegia and hemiparesis following other cerebrovascular disease affecting right dominant side; E53.8 Deficiency of other specified B group vitamins; E83.42 Hypomagnesemia; K86.1 Other chronic pancreatitis; G40.909 Epilepsy, unspecified, not intractable, without status epilepticus; E78.5 Hyperlipidemia, unspecified; K21.9 Gastro-esophageal reflux disease without esophagitis; M19.90 Unspecified osteoarthritis, unspecified site; Z95.0 Presence of cardiac pacemaker; R47.1 Dysarthria and anarthria
CPT/HCPCS: 36415; 71010-TC; 80048-TC; 80053-TC; 83690-TC; 83735-TC; 83880; 84100-TC; 84484-TC; 85025-TC; 85730-TC; 87081-TC; 93307-TC; 94799-TC; 97001-TC; J1650; J1953; J3475; J7030

== ENCOUNTER 2017-05-02 16:18 | Inpatient (IN) | payer MEDICAID ==
[~2017-05-02] VITALS: Ht 182.9 cm; Wt 88.9 kg
[~2017-05-02 16:18] MED LIST changes: +ACET325T53 PO; +AMYL1CAP60 PO; +DIPH25CA6 PO; -DOCU-170 PO; +DOCU250C75 PO; +FAMO20TA8 PO; +HYDR-3976 PO; +MAG30ORA PO; +MAGN400O6 PO; +MELA5TAB PO; -PANT40TA4 PO; +SIMV20TA6 PO
[2017-05-02] MEDS ORDERED: FEE PK DOSING 1 MIN EA MC ONE (16:20)
--- NOTE | 2017-05-02 16:36 | NUR ---
RECIEVED PT TO ED 02, PER EMS REPORT, [facility] CALLED 911 DUE TO AMS; MORE ALTERED THAN NORMAL, UNKNOWN BASELINE. BS-94MG/DL. PT GOWNED AND PLACED ON CONT CARDIAC MONITORING. ALL NEEDS ARE ATTENDED, KEPT WARM AND COMFORTABLE. PENDING ER MD EVALUATION
--- NOTE | 2017-05-02 16:37 | NUR ---
SEEN AND EVALUATED BY DR. OCONNELL
[2017-05-02 17:01] LABS: BASOPHILS % (AUTO) 0.5 % (0.0-2.0); EOSINOPHILS # (AUTO) 0.8 /CMM (0.0-0.7); EOSINOPHILS % (AUTO) 8.1 % (0.0-6.0); HEMATOCRIT 44 % (39-51); HEMOGLOBIN 14.8 g/dL (13.5-17.5); LYMPHOCYTES # (AUTO) 1.7 /CMM (0.8-4.8); LYMPHOCYTES % (AUTO) 17.1 % (20.0-44.0); MEAN CORPUSCULAR HEMOGLOBIN 30 PG (26.0-33.0); MEAN CORPUSCULAR HGB CONC 34 g/dl (31.0-36.0); MEAN CORPUSCULAR VOLUME 88 fL (80-96); MONOCYTES # (AUTO) 0.7 /CMM (0.1-1.30); MONOCYTES % (AUTO) 7.3 % (2.0-12.0); NEUTROPHILS # (AUTO) 6.7 /CMM (1.8-8.9); PLATELET COUNT (AUTO) 256 /CMM (150-450); RDW COEFFICIENT OF VARIATION 12.7 (11.5-15.0); RED BLOOD CELL COUNT(AUTO) 4.98 MIL/uL (4.5-6.0); WHITE BLOOD COUNT (AUTO) 9.9 K/uL (4.3-11.0)
[2017-05-02 17:10] LABS: CALCIUM, SERUM 9.8 mg/dL (8.5-10.1); CARBON DIOXIDE 23 mmol/L (21-32); CHLORIDE 104 mmol/L (98-107); CREATININE 1.1 mg/dL (0.6-1.3); GLUCOSE 103 mg/dL (74-106); POTASSIUM 3.7 mmol/L (3.5-5.1); SODIUM SERUM 141 mmol/L (136-145); UREA NITROGEN, BLOOD 17 mg/dL (7-18)
[2017-05-02 17:14] LABS: INR 0.98 (0.87-1.13); PROTHROMBIN TIME 10.2 SECS (9.5-12.7)
[2017-05-02 17:18] LABS: APPEARANCE,URINE Clear (CLEAR); BILIRUBIN,URINE Negative (NEGATIVE); BLOOD, URINE Negative Ery/uL (NEGATIVE); COLOR,URINE Yellow (YELLOW); KETONES,URINE Negative (NEGATIVE); LEUKOCYTE ESTERASE ,URINE Negative (NEGATIVE); NITRITE, URINE Negative (NEGATIVE); PH,URINE 5.5 (5.0-8.0); PROTEIN,URINE 100 mg/dl (NEGATIVE); UGLUCOSE Negative (NEGATIVE); UROBILINOGEN,URINE 0.2 EU/dL (0.2)
[2017-05-02 17:18] LABS: TROPONIN I < 0.017 ng/mL (0.00-0.056)
[2017-05-02 17:27] LABS: ALANINE AMINOTRANSFERASE 35 U/L (12-78); ALCOHOL, BLOOD < 3 mg/dL (0-0); ALKALINE PHOSPHATASE 83 U/L (46-116); ASPARTATE AMINOTRANSFERASE 25 U/L (15-37); BILIRUBIN,TOTAL 0.3 mg/dL (0.2-1.0); TOTAL PROTEIN, SERUM 7.8 g/dL (6.4-8.2)
[2017-05-02 17:33] LABS: SALICYLATE 1.5 mg/dL (2.8-20.0)
[2017-05-02 17:34] LABS: ACETAMINOPHEN < 2 ug/ml (10-30)
[2017-05-02 17:40] LABS: BACTERIA,URINE Moderate /HPF (None Seen); RBC,URINE 0-2 /HPF (0-2); SQUAMOUS EPITHELIAL CELL,UR Moderate /HPF (None Seen); WBC,URINE 0-2 /HPF (0-3)
[2017-05-02 17:41] LABS: HYALINE CASTS, URINE Rare /LPF (None Seen)
--- NOTE | 2017-05-02 18:01 | NUR ---
SHANNAN WAS PAGED
[2017-05-02] MEDS ORDERED: IV NS 0.9% 1,000 ML BAG IV ONE ×2 (18:30→19:00)
[2017-05-02] MEDS ORDERED: PIPERACILLIN /TAZOBACTAM 3.375 G in IV D5W 50 ML IV ONE (18:30)
[2017-05-02] MEDS ORDERED: VANCOMYCIN 1 GM in IV D5W 250 ML IV ONE (18:30)
--- NOTE | 2017-05-02 18:57 | NUR ---
REPORT GIVEN TO NURSE LAWRENCE FOR CONT OF CARE
[2017-05-02] MEDS ORDERED: MORPHINE SULFATE INJ 2 MG/ML DISP.SYRIN IV PRN (19:00)
[2017-05-02] MEDS ORDERED: ONDANSETRON HCL/PF 4 MG/2 ML VIAL IVP PRN (19:00)
[2017-05-02] MEDS ORDERED: MAG HYDROX/AL HYDROX/SIMETH 30 ML UDC PO PRN (19:00)
[2017-05-02] MEDS ORDERED: ACETAMINOPHEN 325 MG TABLET PO PRN ×2 (19:00)
[2017-05-02] MEDS ORDERED: LORAZEPAM INJ 2 MG/ML VIAL IVP PRN (19:00)
[2017-05-02] MEDS ORDERED: diphenhydrAMINE HCL 25 MG CAPSULE PO PRN (19:00)
--- NOTE | 2017-05-02 19:00 | NUR ---
PT APPEARS TO BE RESTING COMFORTABLY WITH NO S/S OF PAIN OR DISTRESS. PT IS ON THE MONITOR AND CONTINOUS PULSE OX.
--- NOTE | 2017-05-02 19:01 | NUR ---
PT HAS L UPPER CHEST PACEMAKER.
[2017-05-02] MEDS ORDERED: FENTANYL PF 100MCG/2ML AMPUL IV PRN (19:30)
[2017-05-02] MEDS ORDERED: HYDROCODONE/APAP 5/325MG 1 EACH TABLET PO PRN (19:30)
--- NOTE | 2017-05-02 19:51 | NUR ---
PT PULLED OUT RT HAND IV. PT WAS CLEANED AND NEW 18G IV STARTED IN LAC. BLOOD WAS DRAWN FOR THE LAB. PT IS ON THE MONITOR AND CONTINUOUS PULSE OX. PT REC'D WARM BLANKETS.
--- NOTE | 2017-05-02 20:22 | NUR ---
STARTED 1L NS BOLUS PER DR. ROSALES'S ORDER.
[2017-05-02] MEDS ORDERED: HYDROCODONE/APAP 5/325MG 1 EACH TABLET ONE (20:30)
--- NOTE | 2017-05-02 20:37 | NUR ---
PT IS C/O ABD PAIN. PT REC'D A NORCO 5/325MG PO. VSS
--- NOTE | 2017-05-02 20:59 | NUR ---
GIVING REPORT TO MELISA REED
[2017-05-02] MEDS ORDERED: HYDROCODONE/APAP 5/325MG 1 EACH TABLET PO ONE (21:00)
--- NOTE | 2017-05-02 21:15 | NUR ---
PT IS USING THE URINAL. WHEN FINISHED, PT WILL BE TRANSFERRED TO TELE.
[2017-05-02 21:25] VITALS: BP 104/59
--- NOTE | 2017-05-02 21:25 | NUR ---
ADMISSION/RN PERITONEAL DIALYSIS NOTES RECEIVED PT FROM ER VIA ALAN TO ROOM 304-1, A & O X 1, UNCLEAR SPEECH @ THIS TIME. RESP EVEN & NON LABORED. NO S/S OF PAIN, SOB, ACUTE CHANGES NOTED. IV ACCESS TO LAC & LFA, INTACT PATENT. BODY ASSESSMENT DONE & DOCUMENTED. ALL BELONGINGS ACCOUNTED FOR & DOCUMENTED BY DIRECTOR SPORTS. INCONTINENT OF B & BM. NPO PER MD DUE TO HX OF ABD PAIN @ ER. ALL ORDERS REVIEWED WITH MD. NOTED & CARRIED OUT. ON IV ATB'S. V/S WNL. ON TELE MONITORING WITH SR 62. MADE COMFORTABLE IN BED. SAFETY MEASURES IN PLACE. BED ALARM ON & IN LOW LOCKED POSITION. CALL LIGHT WITHIN REACH. WILL OBSERVE CLOSELY FOR ANY EVERETT.
--- NOTE | 2017-05-02 21:27 | NUR ---
PT TRANSPORTED TO TELE PER PROTOCOL.
[2017-05-02] MEDS ORDERED: Medication Not On Formulary EA (Melatonin 5 MG) PO SCH (22:00)
[2017-05-02] MEDS: SIMVASTATIN 20 MG TABLET PO SCH (22:50)
[2017-05-02] MEDS: DOCUSATE SODIUM 250 MG CAPSULE PO SCH (22:51)
[2017-05-02] MEDS ORDERED: PIPERACILLIN /TAZOBACTAM 3.375 G VIAL IV ONE (23:45)
[2017-05-03] VITALS: BP 126/66
--- NOTE | 2017-05-03 00:10 | NUR ---
NEW ORDER RECEIVED PATIENT IS NPO, UPON ADMISSION PER MD ORDER, ONLY BOLUS IVF GIVEN @ ER. CLARIFIED WITH DR. CARLSON & ORDERED NEW IVF ORDER AFTER REVIEWING THE LABS & V/S. NOTED & CARRIED OUT. OBSERVING THE PT CLOSELY.
[2017-05-03] MEDS: IV D5/ 0.9% NACL 1,000 ML IV PRN ×2 (00:31→23:52)
[2017-05-03] MEDS: PIPERACILLIN /TAZOBACTAM 3.375 G in IV D5W 50 ML IV SCH ×4 (00:46→20:00)
[2017-05-03 04:00] VITALS: BP_SYST 122; BP_SYST 128; BP_DIAS 61; BP_DIAS 64
[2017-05-03] MEDS: VANCOMYCIN 1 GM in IV D5W 250 ML IV SCH ×2 (06:05→18:08)
--- NOTE | 2017-05-03 06:36 | NUR ---
EMERGING TECHNOLOGIES DIRECTOR CLOSING NOTES PT SLEPT INTERMITTENTLY AT NIGHT. A & O X 1, UNCLEAR SPEECH, UNABLE TO MAKE NEEDS KNOWN @ TIMES DUE TO APHASIA. RESP EVEN & NON LABORED. NO S/S OF PAIN, SOB, ACUTE CHANGES NOTED. IV ACCESS TO LAC & LFA, INTACT PATENT, RUNNING WITH D5NS @ 70 ML/HR. INCONTINENT OF B & BM. NPO PER MD DUE TO HX OF ABD PAIN @ ER. ON IV ATB'S. V/S WNL. ON TELE MONITORING WITH SR 60, V PACING. KEPT WARM & COMFORTABLE IN BED.SAFETY MEASURES IN PLACE. BED ALARM ON & IN LOW LOCKED POSITION. CALL LIGHT WITHIN REACH. WILL ENDORSE TO AM SHIFT RN FOR CONTINUITY OF CARE.
[2017-05-03 07:03] LABS: BASOPHILS # (AUTO) 0.1 /CMM (0.0-0.2); BASOPHILS % (AUTO) 0.7 % (0.0-2.0); EOSINOPHILS # (AUTO) 0.8 /CMM (0.0-0.7); EOSINOPHILS % (AUTO) 8.2 % (0.0-6.0); HEMATOCRIT 37 % (39-51); HEMOGLOBIN 12.4 g/dL (13.5-17.5); LYMPHOCYTES # (AUTO) 1.8 /CMM (0.8-4.8); LYMPHOCYTES % (AUTO) 19.3 % (20.0-44.0); MEAN CORPUSCULAR HEMOGLOBIN 30 PG (26.0-33.0); MEAN CORPUSCULAR HGB CONC 34 g/dl (31.0-36.0); MEAN CORPUSCULAR VOLUME 89 fL (80-96); MONOCYTES # (AUTO) 0.6 /CMM (0.1-1.30); MONOCYTES % (AUTO) 6.6 % (2.0-12.0); NEUTROPHILS # (AUTO) 6.1 /CMM (1.8-8.9); NEUTROPHILS % (AUTO) 65.2 % (43.0-81.0); PLATELET COUNT (AUTO) 208 /CMM (150-450); RDW COEFFICIENT OF VARIATION 13.4 (11.5-15.0); RED BLOOD CELL COUNT(AUTO) 4.13 MIL/uL (4.5-6.0); WHITE BLOOD COUNT (AUTO) 9.4 K/uL (4.3-11.0)
[2017-05-03 07:19] LABS: TROPONIN I 0.041 ng/mL (0.00-0.056)
[2017-05-03 07:32] LABS: ALBUMIN 3.2 g/dL (3.4-5.0); BILIRUBIN,TOTAL 0.5 mg/dL (0.2-1.0); CALCIUM, SERUM 8.3 mg/dL (8.5-10.1); CREATININE 0.9 mg/dL (0.6-1.3); POTASSIUM 3.5 mmol/L (3.5-5.1); TOTAL PROTEIN, SERUM 6.3 g/dL (6.4-8.2)
[2017-05-03 08:00] VITALS: BP 129/68
--- NOTE | 2017-05-03 08:00 | NUR ---
MS RN OPENING NOTES Received patient in bed, awake, answers simple question with yes or no. No SOB noted. No sign of distress noted. IV site LAC and LFA intact, no s/sx of infiltration noted. Call light placed within reach. Will continue to monitor accordingly.Seen by PT and ST.
[2017-05-03 08:09] LABS: IRON, SERUM 109 ug/dl (50-175); TOTAL IRON BINDING CAPACITY 231 ug/dl (250-450)
[2017-05-03 08:22] LABS: FERRITIN 60 ng/mL (8-388)
[2017-05-03 09:23] LABS: INR 1.03 (0.87-1.13); PROTHROMBIN TIME 10.7 SECS (9.5-12.7)
[2017-05-03] MEDS: ASPIRIN 81 MG TAB.CHEW PO SCH (09:50)
[2017-05-03] MEDS: POLYETHYLENE GLYCOL 3350 17 GM POWD.PACK PO SCH (09:52)
[2017-05-03] MEDS: CHOLECALCIFEROL 1,000 UNIT TABLET (VIT D3) PO SCH (09:52)
[2017-05-03] MEDS: LEVETIRACETAM SOL (5 ML) 100 MG/ML UDC PO SCH ×2 (09:52→18:06)
[2017-05-03] MEDS: FAMOTIDINE (20 MG) 20 MG TABLET PO SCH (09:52)
[2017-05-03] MEDS: LIPASE/PROTEASE/AMYLASE 1 EACH CAPSULE.DR PO SCH ×3 (10:38→18:06)
[2017-05-03 16:00] VITALS: BP 129/82
--- NOTE | 2017-05-03 19:23 | NUR ---
RN CLOSING NOTES Patient in bed, awake, answers simple question with yes or no, in stable condition. No SOB noted. No signs of distress noted. IV site LAC and LFA intact, no s/sx of infiltration noted. Call light placed within reach. Needs attended. Due medications given , no ASE noted. Will continue to monitor. Endorsed to incoming shift
--- NOTE | 2017-05-03 19:30 | NUR ---
RN OPENING NOTES PATIENT IS IN BED, ALERT AND ORIENTED X1. VS STABLE. RESPIRATIONS EVEN AND UNLABORED. NO SOB NOTED. IV ACCESS ON LAC PATENT AND INTACT, INFUSING D5NS AT 75 ML/HR. NO REDNESS OR INFILTRATION NOTED. BED IN LOW AND LOCKED POSITION. SIDE RAILSX2. CALL LIGHT WITHIN EASY REACH. WILL CONTINUE TO MONITOR AND ASSESS DURING THE SHIFT.
[2017-05-03 20:00] VITALS: BP 109/67
[2017-05-03] MEDS: SIMVASTATIN 20 MG TABLET PO SCH (21:31)
[2017-05-03] MEDS: DOCUSATE SODIUM 250 MG CAPSULE PO SCH (21:31)
[2017-05-04] MEDS: PIPERACILLIN /TAZOBACTAM 3.375 G in IV D5W 50 ML IV SCH ×3 (01:40→12:50)
[2017-05-04] MEDS: VANCOMYCIN 1 GM in IV D5W 250 ML IV SCH (05:33)
--- NOTE | 2017-05-04 06:41 | NUR ---
RN CLOSING NOTES PATIENT IS SLEEPING IN BED, EASY TO AROUSE ALERT AND ORIENTED X1. NO C/O PAIN AT THIS TIME. VS STABLE. RESPIRATIONS EVEN AND UNLABORED. NO SOB NOTED. IV ACCESS ON LAF PATENT AND INTACT, INFUSING D5NS AT 75 ML/HR. NO REDNESS OR INFILTRATION NOTED. ALL NEEDS ARE MET AND MEDICATIONS GIVEN PER MD ORDER. BED IN LOW AND LOCKED POSITION. SIDE RAILSX2. CALL LIGHT WITHIN EASY REACH. WILL ENDORSE TO RN DAY SHIFT FOR CONTINUITY OF CARE
[2017-05-04 06:54] LABS: CALCIUM, SERUM 8.7 mg/dL (8.5-10.1); CREATININE 0.9 mg/dL (0.6-1.3); POTASSIUM 3.7 mmol/L (3.5-5.1)
[2017-05-04 08:00] VITALS: BP 121/77
[2017-05-04] MEDS: ASPIRIN 81 MG TAB.CHEW PO SCH (08:43)
[2017-05-04] MEDS: FAMOTIDINE (20 MG) 20 MG TABLET PO SCH (08:43)
[2017-05-04] MEDS: POLYETHYLENE GLYCOL 3350 17 GM POWD.PACK PO SCH (08:43)
[2017-05-04] MEDS: LIPASE/PROTEASE/AMYLASE 1 EACH CAPSULE.DR PO SCH ×2 (08:43→12:52)
[2017-05-04] MEDS: LEVETIRACETAM SOL (5 ML) 100 MG/ML UDC PO SCH (08:43)
[2017-05-04] MEDS: CHOLECALCIFEROL 1,000 UNIT TABLET (VIT D3) PO SCH (08:43)
--- NOTE | 2017-05-04 10:45 | NUR ---
MS RN OPENING NOTES Patient in bed, alert oriented x1 in stable condition. No SOB noted. No sign of distress noted. Breathing regular even and unlabored. IV access on LAC patent and intact. No infiltration or redness noted. Bed in low position and locked, Side rails up x2. Call light placed within reach. Will continue to monitor accordingly.
[2017-05-04] MEDS ORDERED: CEPH-570 PO (12:22)
--- NOTE | 2017-05-04 16:20 | NUR ---
MS VINCENTCAFETERIA MANAGER NOTES PATIENT DISCHARGE TO [facility] WITH STABLE VS. GAVE REPORT TO TRUONG. FAXED PRESCRIPTIONS TO [facility] FAX: [phone] and called [facility] or [facility] and confirmed he received it. Faxed all history and physical and discharge documents to [facility], [facility] confirmed faxed received. Addendum: 05/04/17 at 1741 by ИРИНА AC RN REMOVED PATIENTS IV LFA HEPLOCK WITHOUT BLEEDING OR REDNESS ON THE SITE.
== END 2017-05-04 16:25 | DRG 720 ==
LOC: ER 16:19 → TELE 20:58 → MED 05-03 08:20
PROVIDERS: ADMIT Internal Medicine; ATTEND Internal Medicine
DX: A41.9 Sepsis, unspecified organism (principal); G93.41 Metabolic encephalopathy; D64.9 Anemia, unspecified; G40.909 Epilepsy, unspecified, not intractable, without status epilepticus; I69.320 Aphasia following cerebral infarction; R47.02 Dysphasia; K21.9 Gastro-esophageal reflux disease without esophagitis; I25.10 Atherosclerotic heart disease of native coronary artery without angina pectoris; Z88.8 Allergy status to other drugs, medicaments and biological substances; Z79.82 Long term (current) use of aspirin; E78.5 Hyperlipidemia, unspecified; M19.90 Unspecified osteoarthritis, unspecified site; Z79.899 Other long term (current) drug therapy; K86.1 Other chronic pancreatitis; E53.8 Deficiency of other specified B group vitamins; E86.0 Dehydration; Z95.0 Presence of cardiac pacemaker; R47.1 Dysarthria and anarthria
CPT/HCPCS: 36415; 70450-TC; 71010-TC; 80048-TC; 80053-TC; 80076-TC; 80202-TC; 80305; 81000-TC; 82553-TC; 82728-TC; 82962-TC; 83540-TC; 83605-TC; 84484-TC; 85025-TC; 85385-TC; 85610-TC; 85730-TC; 86850-TC; 87040-TC; 87081-TC; 87086-TC; 92521; 92526; 95819-TC; 97116-TC; 97530-TC; A4606; G0480; J1953; J2543; J3370; J7030; J7040; J7042; J7060; Z7610

== ENCOUNTER 2017-07-19 17:39 | Inpatient (IN) | payer MEDICAID ==
[~2017-07-19] VITALS: Ht 162.6 cm; Wt 92.1 kg
[~2017-07-19 17:39] MED LIST changes: +ASPI-1169 PO; -ASPI81TA2 PO; +CEPH-570 PO; +DOCU250C14 PO; -DOCU250C75 PO
--- NOTE | 2017-07-19 17:40 | NUR ---
SVETLANA FROM HOME WITNESSED SEIZURE. PATIENT RECEIVED ON POST ICTAL. PATIENT ON O2 VIA NC. RESPONDS TO PAIN. PATIENT IS AFEBRILE. GOWNED PT AND PLACED ON TELE MONITOR. PENDING MD JIN
[2017-07-19] MEDS ORDERED: LORAZEPAM INJ 2 MG/ML VIAL IVP ONE (18:00)
[2017-07-19] MEDS ORDERED: IV NS 0.9% 1,000 ML BAG IV ONE (18:00)
--- NOTE | 2017-07-19 18:00 | NUR ---
EKG IN PROGESS
[2017-07-19] MEDS ORDERED: LORAZEPAM INJ 2 MG/ML VIAL ONE (18:04)
--- NOTE | 2017-07-19 18:23 | NUR ---
URINE SAMPLE COLLECTED AND SENT TO LAB
[2017-07-19 18:33] LABS: BASOPHILS % (AUTO) 0.5 % (0.0-2.0); EOSINOPHILS # (AUTO) 0.8 /CMM (0.0-0.7); EOSINOPHILS % (AUTO) 9.6 % (0.0-6.0); HEMATOCRIT 42 % (39-51); HEMOGLOBIN 14.4 g/dL (13.5-17.5); LYMPHOCYTES % (AUTO) 22.3 % (20.0-44.0); MEAN CORPUSCULAR HEMOGLOBIN 31 PG (26.0-33.0); MEAN CORPUSCULAR HGB CONC 34 g/dl (31.0-36.0); MEAN CORPUSCULAR VOLUME 89 fL (80-96); MONOCYTES # (AUTO) 0.6 /CMM (0.1-1.30); MONOCYTES % (AUTO) 6.7 % (2.0-12.0); NEUTROPHILS # (AUTO) 5.4 /CMM (1.8-8.9); NEUTROPHILS % (AUTO) 60.9 % (43.0-81.0); PLATELET COUNT (AUTO) 201 /CMM (150-450); RDW COEFFICIENT OF VARIATION 12.1 (11.5-15.0); RED BLOOD CELL COUNT(AUTO) 4.73 MIL/uL (4.5-6.0); WHITE BLOOD COUNT (AUTO) 8.8 K/uL (4.3-11.0)
[2017-07-19 18:47] LABS: BILIRUBIN,DIRECT 0.1 mg/dL (0.0-0.2); BILIRUBIN,TOTAL 0.2 mg/dL (0.2-1.0); CALCIUM, SERUM 9.1 mg/dL (8.5-10.1); CREATININE 1.2 mg/dL (0.6-1.3); POTASSIUM 3.5 mmol/L (3.5-5.1); TOTAL PROTEIN, SERUM 8.2 g/dL (6.4-8.2)
--- NOTE | 2017-07-19 18:57 | NUR ---
REPORT GIVEN RTO MELISA HANSEN FOR EVERETT
--- NOTE | 2017-07-19 19:01 | NUR ---
ASSUMED CARE: PT LAYING IN BED, MOANS TO VERBAL COMMANDS, BREATHING EVEN/UNALBORED OXYGEN IN PLACE NRB @15L SAT 99%, SINUS TACH ON ESTATE PLANNING COUNSELOR 124, SKIN WARM/DIAPHORETIC, XR BEDSIDE AT THIS TIME, SEIZURE PRECAUTIONS IN PLACES/SIDERAILS PADDED,
[2017-07-19 19:19] LABS: PHENYTOIN (DILANTIN) < 0.5 ug/ml (10.0-20.0)
[2017-07-19] MEDS ORDERED: phenytoin SODIUM IV 1,000 MG in IV NS 0.9% 100 ML IV ONE (20:00)
[2017-07-19] MEDS ORDERED: LEVETIRACETAM (500MG) 1,000 MG in IV NS 0.9% 100 ML IV SCH (20:00)
[2017-07-19] MEDS ORDERED: PHENYTOIN SODIUM IV 50 MG/ML VIAL ONE (20:11)
[2017-07-19 20:19] LABS: TROPONIN I < 0.017 ng/mL (0.00-0.056)
[2017-07-19] MEDS ORDERED: ASPIRIN EC 325 MG TABLET.DR PO ONE (21:30)
[2017-07-19] MEDS ORDERED: IV NS 0.9% 1,000 ML IV PRN (21:43)
[2017-07-19] MEDS: SIMVASTATIN 20 MG TABLET PO SCH (22:00)
[2017-07-19] MEDS ORDERED: MORPHINE SULFATE INJ 2 MG/ML DISP.SYRIN IV PRN (22:00)
[2017-07-19] MEDS ORDERED: Z GUARD REMEDY 2 OZ OINT TP PRN (22:00)
[2017-07-19] MEDS ORDERED: ONDANSETRON HCL/PF 4 MG/2 ML VIAL IVP PRN (22:00)
[2017-07-19] MEDS ORDERED: ACETAMINOPHEN 650 MG/SUPP.RECT RC PRN (22:00)
[2017-07-19] MEDS: DOCUSATE SODIUM 250 MG CAPSULE PO SCH (22:00)
[2017-07-19 22:30] VITALS: BP 112/79
--- NOTE | 2017-07-19 22:30 | NUR ---
FARMWORKER FRUIT NOTES ADMITTED FROM ER PER ALAN,TOO SLEEPY,WAS GIVEN ATIVAN 1MG IV IN ER.CAME IN TO ER VIA 911 DUE TO UNWITNESS SEIZURE ACTIVITY AT HOME,FOUND IN THE BATHROOM.NOTED FACIAL RASHES.IVF NS AT 75ML/HR RATE INFUSING VIA IV PUMP ON LEFT AC SALINE LOCK.OPEN EYES TO NAME,NO ACTIVE VERBAL RESPONSE.PATIENT WAS GIVEN DILANTIN AND KEPPRA IV IN ER FOR SEIZURE PROHYLAXIS.WILL CONTINUE TO MONITOR STATUS.
[2017-07-19] MEDS: ENOXAPARIN SODIUM 40 MG/0.4 ML DISP.SYRIN SQ SCH (22:54)
--- NOTE | 2017-07-19 22:54 | NUR ---
GENERAL FORECASTER NOTES STARTED ON LOVENOX 40MG SQ ORDERED
--- NOTE | 2017-07-19 23:00 | NUR ---
HEEL STAINER NOTES SEEN BY DR COTTRELL,WITH ORDER TO GIVE ECOTRIN IN THE MORNING DUE TO SEDATION FROM ATIVAN.
[2017-07-20] VITALS: BP 112/79
--- NOTE | 2017-07-20 00:15 | NUR ---
HOME HOSPICE AIDE NOTES SR -98 ON TELE MONITOR.
--- NOTE | 2017-07-20 00:50 | NUR ---
FINAL FINISHER NOTES TROPONIN RESULT 0.258 THIS TIME,WOKE UP WITH BLOOD DRAWING AND CHANGING DIAPER.
--- NOTE | 2017-07-20 01:00 | NUR ---
YOLK SPRAY DRIER NOTES CHAD FROM RT CAME TO DO EKG,PATIENT SO RESTLESS,TRYING TO PULL EKG WIRING.PER UNABLE TO GET GOOD EKG READING.
--- NOTE | 2017-07-20 02:15 | NUR ---
NEONATAL NURSE NOTES DR COTTRELL WAS PAGE TO REPORT ELEVATED TROPONIN,AWAITING TO CALL BACK.
[2017-07-20] MEDS ORDERED: MORPHINE SULFATE INJ 4 MG/ML DISP.SYRIN IV PRN (02:30)
--- NOTE | 2017-07-20 03:12 | NUR ---
BUSINESS SYSTEM CONSULTANT NOTES DR COTTRELL MADE AWARE ON ELEVATED TROPONIN AND RT'S UNABLE TO GET GOOD EKG READING DUE TO PATIENT WAS RESTLESS.WITH ORDER TO REPEAT EKG IN THE MORNING AND TROPONIN LEVEL NOTED AND CARRIED OUT.
[2017-07-20 04:00] VITALS: BP 110/78
--- NOTE | 2017-07-20 06:14 | NUR ---
LAPEL BASTER NOTES RT AT BEDSIDE TO DO REPEAT EKG ORDERED.
--- NOTE | 2017-07-20 06:30 | NUR ---
PATIENT NAVIGATOR NOTES UNABLE TO DO EKG,PER RT,PATIENT DOESNT WANT TO COOPERATE.HES REMOVING EKG WIRES.NO SEIZURE ACTIVITY NOTED.SIDE RAILS PADDED FOR SAFETY.CALL LIGHT IN REACH.ENDORSED TO DAY NURSE FOR EVERETT.
[2017-07-20 07:30] LABS: BASOPHILS % (AUTO) 0.2 % (0.0-2.0); EOSINOPHILS # (AUTO) 0.2 /CMM (0.0-0.7); EOSINOPHILS % (AUTO) 1.7 % (0.0-6.0); HEMATOCRIT 41 % (39-51); HEMOGLOBIN 13.9 g/dL (13.5-17.5); LYMPHOCYTES # (AUTO) 1.3 /CMM (0.8-4.8); LYMPHOCYTES % (AUTO) 10.8 % (20.0-44.0); MEAN CORPUSCULAR HEMOGLOBIN 30 PG (26.0-33.0); MEAN CORPUSCULAR HGB CONC 34 g/dl (31.0-36.0); MEAN CORPUSCULAR VOLUME 90 fL (80-96); MONOCYTES # (AUTO) 0.9 /CMM (0.1-1.30); MONOCYTES % (AUTO) 7.3 % (2.0-12.0); NEUTROPHILS # (AUTO) 9.8 /CMM (1.8-8.9); PLATELET COUNT (AUTO) 207 /CMM (150-450); RDW COEFFICIENT OF VARIATION 12.9 (11.5-15.0); RED BLOOD CELL COUNT(AUTO) 4.57 MIL/uL (4.5-6.0); WHITE BLOOD COUNT (AUTO) 12.3 K/uL (4.3-11.0)
[2017-07-20 07:53] LABS: CALCIUM, SERUM 8.7 mg/dL (8.5-10.1); CREATININE 0.9 mg/dL (0.6-1.3); MAGNESIUM 2.1 mg/dL (1.8-2.4); PHOSPHORUS 3.3 mg/dL (2.5-4.9); POTASSIUM 3.7 mmol/L (3.5-5.1)
[2017-07-20 07:56] LABS: THYROID STIMULATING HORMONE 1.162 uIU/mL (0.358-3.74)
[2017-07-20 08:00] VITALS: BP 133/82
[2017-07-20] MEDS: ASPIRIN 81 MG TAB.CHEW PO SCH (08:09)
[2017-07-20] MEDS ORDERED: PANTOPRAZOLE 40 MG VIAL IV SCH (09:00)
[2017-07-20] MEDS ORDERED: LEVETIRACETAM SOL (5 ML) 100 MG/ML UDC PO SCH (09:00)
[2017-07-20] MEDS: LEVETIRACETAM SOL (5 ML) 100 MG/ML UDC PO SCH ×2 (09:29→16:41)
[2017-07-20] MEDS: IV D5/ 0.9% NACL 1,000 ML IV PRN (12:20)
[2017-07-20 16:00] VITALS: BP 137/87
--- NOTE | 2017-07-20 17:24 | NUR ---
M/S RN - Notes Patient alert to self, able to follow simple commands, remain non-verbal, confused, frequent reorientation provided. Patient currently on D5NS at 75 ml/hr infusing well on the RAC with no signs of complications. NPO except meds, Keppra increased to 750 mg orally BID. No seizure activity seen. Fall, seizure and aspiration precautions maintained. All needs attended and met. Will endorse to hotel night auditor RN for continuity of care.
--- NOTE | 2017-07-20 19:30 | NUR ---
MS RN NOTES PATIENT RECEIVED RESTING INSIDE ROOM, SLEEPING INTERMITTENTLY, AROUSABLE THROUGH VERBAL AND TACTILE STIMULI, PATIENT DOESNT RESPOND VERBALLY AND DOESNT FOLLOW COMMANDS. ATTEMPTED TO ASSESS ARMS FOR IV SITES AND PATIENT WOULD KEEP TURNING AND WOULD SWING HIS ARMS. NO CHANGES IN LOC NOTED. PATIENT ON SEIZURE PRECAUTION, MAINTAINED STIMULUS AT MINIMUM. PATIENT BREATHING EVEN AND UNLABORED. NO SOB OR ACUTE DISTRESS NOTED. WILL CONTINUE TO MONITOR. BILATERAL UPPER SIDE RAILS UP AND LOCKED. BED LOCKED AND IN LOW POSITION. CALL LIGHT WITHIN EASY REACH
[2017-07-20 20:00] VITALS: BP 116/64
--- NOTE | 2017-07-20 20:05 | NUR ---
MS RN NOTES INSERTED IV TO LEFT FOREARM, #20. 1 ATTEMPT WITH GOOD BLOOD RETURN. DRESSING PLACED AND COVERED WITH SLEEVE FOR SAFETY. WILL CONTINUE TO MONITOR
--- NOTE | 2017-07-20 20:30 | NUR ---
GUILLERMINA FROM RADIOLOGY CAME TO DO ECHOCARDIOGRAM, PATIENT SO RESTLESS, UNABLE TO STAY STILL DESPITE FREQUENT REORIENTATION AND DIRECTION. UNABLE TO DO ECHO AT THIS TIME.
[2017-07-20] MEDS: DOCUSATE SODIUM 250 MG CAPSULE PO SCH (21:34)
[2017-07-20] MEDS: FAMOTIDINE (20 MG) 20 MG TABLET PO SCH (21:34)
[2017-07-20] MEDS: SIMVASTATIN 20 MG TABLET PO SCH (21:34)
[2017-07-20] MEDS: ENOXAPARIN SODIUM 40 MG/0.4 ML DISP.SYRIN SQ SCH (21:36)
--- NOTE | 2017-07-20 21:50 | NUR ---
PT REFUSED MORPHINE SULFATE 2 MG IVP AT THIS TIME. RISK AND BENEFITS EXPLAINED PT STILL REFUSED X 3. NO S/S OF PAIN OR DISCOMFORT AT THIS TIME. MORPHINE WASTED WITNESSED BY CHARGE NURSE , KARYN. WILL CONT TO MONITOR.
--- NOTE | 2017-07-20 21:55 | NUR ---
GUILLERMINA FROM RADIOLOGY CAME TO DO ECHOCARDIOGRAM FOR THE 2ND TIME, PATIENT SO RESTLESS, UNABLE TO STAY STILL DESPITE FREQUENT REORIENTATION AND DIRECTION. UNABLE TO DO ECHO AT THIS TIME, CHARGE NURSE KARYN AT BED SIDE, WILL ENDORSE TO NEXT SHIFT FOR EVERETT.
--- NOTE | 2017-07-20 22:36 | NUR ---
PATIENT DISORIENTED AND UNCOOPERATIVE DURING ECHO STUDY. INFORMED CHARGE NURSE (ANNABEL) AND ATTENDING NURSE (ANNETTE)
--- NOTE | 2017-07-20 22:41 | NUR ---
MS RN NOTES PLACED CALL TO FARM CONSULTANT , DR. RONIT ROSALES REGARDING PATIENT CONDITION. EXPLAINED THAT PATIENT HAS EPISODES OF TURNING FROM SIDE TO SIDE, WITH ATTEMPTS OF GETTING OUT OF BED UNASSISTED, AND NOT FOLLOWING DIRECTIONS. ALSO VOICED OUT THAT PATIENT IS ON IV HYDRATION AND HAVING THE IV POLE AT BEDSIDE MAY POSE A RISK FOR INJURY SHOULD PATIENT SWING HIS ARMS CONSTANTLY. ALSO VOICED OUT THAT PER PREVIOUS SHIFT REPORT, PATIENT HAD MULTIPLE EPISODES OF SWINGING ARMS AND PULLING OUT IV. RECOMMENDED TO REQUEST POSSIBLE SITTER OR SOFT WRIST RESTRAINTS FOR PATIENT'S SAFETY. NO NEW ORDERS GIVEN AT THIS TIME. KARYN, CHARGE NURSE RN MADE AWARE. WILL CONTINUE TO MONITOR
[2017-07-21] MEDS: IV D5/ 0.9% NACL 1,000 ML IV PRN (06:00)
[2017-07-21 06:48] LABS: BASOPHILS # (AUTO) 0.1 /CMM (0.0-0.2); BASOPHILS % (AUTO) 0.6 % (0.0-2.0); EOSINOPHILS # (AUTO) 0.5 /CMM (0.0-0.7); EOSINOPHILS % (AUTO) 3.5 % (0.0-6.0); HEMATOCRIT 38 % (39-51); LYMPHOCYTES % (AUTO) 15.1 % (20.0-44.0); MEAN CORPUSCULAR HEMOGLOBIN 31 PG (26.0-33.0); MEAN CORPUSCULAR HGB CONC 34 g/dl (31.0-36.0); MEAN CORPUSCULAR VOLUME 90 fL (80-96); MONOCYTES # (AUTO) 1.1 /CMM (0.1-1.30); MONOCYTES % (AUTO) 8.3 % (2.0-12.0); NEUTROPHILS # (AUTO) 9.8 /CMM (1.8-8.9); NEUTROPHILS % (AUTO) 72.5 % (43.0-81.0); PLATELET COUNT (AUTO) 185 /CMM (150-450); RDW COEFFICIENT OF VARIATION 12.9 (11.5-15.0); RED BLOOD CELL COUNT(AUTO) 4.25 MIL/uL (4.5-6.0); WHITE BLOOD COUNT (AUTO) 13.5 K/uL (4.3-11.0)
[2017-07-21 06:52] LABS: CALCIUM, SERUM 8.7 mg/dL (8.5-10.1); CREATININE 0.9 mg/dL (0.6-1.3); POTASSIUM 3.4 mmol/L (3.5-5.1)
--- NOTE | 2017-07-21 06:55 | NUR ---
pt is confused, incontinent with order for urine for drug screen and urinalysis, received an order from dr. vidales for straight cath for urine collection noted and carried out.
--- NOTE | 2017-07-21 07:10 | NUR ---
MS RN NOTES PATIENT RESTING INSIDE ROOM, INTERMITENTLY SLEEPING, EASILY AROUSABLE TROUGH VERBAL AND TACTILE STIMULI. PATIENT APHASIC. BREATHING EVEN AND UNLABORED. NO SOB OR ACUTE DISTRESS NOTED. NO FACIAL GRIMACE NOTED AT THIS TIME. NO EPISODE OF SEIZURE NOTED. MAINTAINED SEIZURE, FALL, AND ASPIRATION PRECAUTIONS IN PLACE. IV SITE ON LEFT FOREARM REMAINS INTACT AND PATENT, NO SWELLING OR BLEEDING NOTED ON SITE. WILL CONTINUE TO MONITOR. ALL NURSING NEEDS ATTENDED AND MET. ALL DUE MEDICATIONS GIVEN AND TOLERATED WELL. PROVIDED WITH CALM, SAFE, HAZARD-FREE ENVIRONMENT. CALL LIGHT PLACED WITHIN EASY REACH. WILL ENDORSE TO INCOMING SHIFT
--- NOTE | 2017-07-21 07:15 | NUR ---
MS RN OPENING NOTES RECEIVED PATIENT IN BED EYES CLOSED. AROUSABLE. RESPONSE TO VERBAL AND TACTILE STIMULI. HOB ELEVATED. NO ACUTE DISTRESS NOTED. BREATHING UNLABORED. IV ACCESS PATENT AND INTACT. NO REDNESS OR SWELLING NOTED. SAFETY MEASURES IN PLACE. CALL LIGHT PLACED WITHIN REACH. WILL CONTINUE TO MONITOR ACCORDINGLY.
[2017-07-21 08:00] VITALS: BP 127/73
[2017-07-21] MEDS ORDERED: FUROSEMIDE 40 MG/4 ML VIAL IV SCH (08:00)
[2017-07-21 08:37] LABS: THYROID STIMULATING HORMONE 1.697 uIU/mL (0.358-3.74)
[2017-07-21] MEDS: ASPIRIN 81 MG TAB.CHEW PO SCH ×2 (09:00→09:22)
[2017-07-21 09:03] LABS: APPEARANCE,URINE CLEAR (CLEAR); BILIRUBIN,URINE NEGATIVE (NEGATIVE); BLOOD, URINE NEGATIVE Ery/uL (NEGATIVE); COLOR,URINE YELLOW (YELLOW); KETONES,URINE NEGATIVE (NEGATIVE); LEUKOCYTE ESTERASE ,URINE NEGATIVE (NEGATIVE); NITRITE, URINE NEGATIVE (NEGATIVE); PH,URINE 6.5 (5.0-8.0); PROTEIN,URINE NEGATIVE (NEGATIVE); UGLUCOSE NEGATIVE (NEGATIVE); UROBILINOGEN,URINE 0.2 EU/dL (0.2)
[2017-07-21] MEDS: POTASSIUM CHLORIDE 20 MEQ TAB.PRT.SR PO SCH ×3 (09:20→10:56)
[2017-07-21] MEDS: FAMOTIDINE (20 MG) 20 MG TABLET PO SCH ×2 (09:20→21:18)
[2017-07-21] MEDS: ATORVASTATIN 10 MG TABLET PO SCH (09:20)
[2017-07-21] MEDS: CARVEDILOL 3.125 MG TABLET PO SCH ×2 (09:21→21:18)
[2017-07-21] MEDS: LEVETIRACETAM SOL (5 ML) 100 MG/ML UDC PO SCH ×2 (09:21→17:01)
[2017-07-21 09:23] LABS: TROPONIN I 0.046 ng/mL (0.00-0.056)
[2017-07-21 16:00] VITALS: BP 99/60
--- NOTE | 2017-07-21 18:30 | NUR ---
MS RN CLOSING NOTES PATIENT IN BED AWAKE WATCHING TV. NO ACUTE DISTRESS NOTED. BREATHING UNLABORED. NO SOB NOTED. ON O2 @ 3LPM VIA NC. IV ACCESS PATENT AND INTACT. NO REDNESS OR SWELLING NOTED. SAFETY MEASURES IN PLACE.HOB ELEVATED. DUE MEDICATIONS GIVEN, NO ASE NOTED. NEEDS ATTENDED AND ANTICIPATED. CALL LIGHT PLACED WITHIN REACH. WILL CONTINUE TO MONITOR ACCORDINGLY.WILL ENDORSE TO DIGITAL CIRCUIT DESIGNER FOR CONTINUITY OF CARE.
--- NOTE | 2017-07-21 19:20 | NUR ---
MS RN NOTES RECEIVED PT IN BED, AWAKE, A/O X 1. NO DISTRESS, NOP SOB NOTED. RESPIRATION IS EVEN AND UNLABORED. PT IS CLEAN AND DRY BUT STILL PT MOVING AND TURNING FROM SIDE TO SIDE, ATTEMPTING TO GET OUT OF THE BED, RE ORIENTED PT, ADVISED TO CALL FOR ASSISTANCE, PT STILL RESTLESS AND ATTEMPTED TO GET OUT OF THE BED. SAFETY PRECAUTIONS OBSERVED. CHIEF TALENT OFFICER AT BEDSIDE AT THIS TIME. IV SITE ON LFA INTACT AND PATENT, FLUSHED WITH NS , NO S/S OF INFILTRATION NOTED. IV LINE SECURED PROPERLY. NO S/S OF PAIN OR DISCOMFORT AT THIS TIME. ALL NEEDS ATTENDED AND MET. KEPT COMFORTABLE. CALL LIGHT WITHIN REACH. WILL CONT TO MONITOR.
--- NOTE | 2017-07-21 20:10 | NUR ---
FOUND PT'S BOTH LEGS ON TOP OF THE SIDE RAILS, NOTED PT MOVING AND TURNING FROM SIDE TO SIDE, ATTEMPTING TO GET OUT OF THE BED, RE ORIENTED PT, ADVISED TO CALL FOR ASSISTANCE, PT STILL RESTLESS AND ATTEMPTED TO GET OUT OF THE BED. SAFETY PRECAUTIONS OBSERVED. WILL MONITOR PT CLOSELY.
--- NOTE | 2017-07-21 20:15 | NUR ---
PT STILL RESTLESS AND ATTEMPTED TO GET OUT OF THE BED. , CHARGE NURSE TAMIKA INFORMED. PLACED A CALL TO DR. COTTRELL STILL AWAITING FOR A CALL BACK.
--- NOTE | 2017-07-21 20:25 | NUR ---
RECEIVED A CALL BACK FROM DR. COTTRELL RELAYED PT'S TRYING TO GET OUT OF THE BED, RESTLESS, DESPITE FREQUENT RE ORIENTATION/ DIVERSION AND NON PHARMACOLOGICAL INTERVENTION DONE, INEFFECTIVE, DR COTTRELL ORDERED 1:1 SITTER , NOTED AND CARRIED OUT. CHARGE NURSE TAMIKA MADE AWARE.
[2017-07-21 20:27] VITALS: BP 126/86
[2017-07-21] MEDS: SIMVASTATIN 20 MG TABLET PO SCH (21:18)
[2017-07-21] MEDS: DOCUSATE SODIUM 250 MG CAPSULE PO SCH (21:19)
[2017-07-21] MEDS: ENOXAPARIN SODIUM 40 MG/0.4 ML DISP.SYRIN SQ SCH (21:21)
--- NOTE | 2017-07-22 06:23 | NUR ---
MS RN NOTES PT IN BED, EYES CLOSED, A//O X1, FREQUENTLY MOVING FROM SIDE TO SIDE. SITTER AT BEDSIDE. NO DISTRESS, NO SOB NOTED. RESPIRATION IS EVEN AND UNLABORED. IV SITE ON LFA INTACT AND PATENT, FLUSHED WITH NS , NO S/S OF INFILTRATION NOTED. IV LINE SECURED PROPERLY. NO S/S OF PAIN OR DISCOMFORT AT THIS TIME. ALL NEEDS ATTENDED AND MET. ALL DUE MEDS GIVEN. KEPT COMFORTABLE. SAFETY PRECAUTIONS OBSERVED. CALL LIGHT WITHIN REACH. WILL ENDORSE TO NEXT SHIFT FOR [place]ERETT.
[2017-07-22 07:24] LABS: BASOPHILS # (AUTO) 0.1 /CMM (0.0-0.2); BASOPHILS % (AUTO) 0.6 % (0.0-2.0); EOSINOPHILS # (AUTO) 0.7 /CMM (0.0-0.7); EOSINOPHILS % (AUTO) 8.4 % (0.0-6.0); HEMATOCRIT 41 % (39-51); HEMOGLOBIN 14.1 g/dL (13.5-17.5); LYMPHOCYTES % (AUTO) 22.5 % (20.0-44.0); MEAN CORPUSCULAR HEMOGLOBIN 31 PG (26.0-33.0); MEAN CORPUSCULAR HGB CONC 35 g/dl (31.0-36.0); MEAN CORPUSCULAR VOLUME 90 fL (80-96); MONOCYTES # (AUTO) 0.9 /CMM (0.1-1.30); MONOCYTES % (AUTO) 10.3 % (2.0-12.0); NEUTROPHILS # (AUTO) 5.1 /CMM (1.8-8.9); NEUTROPHILS % (AUTO) 58.2 % (43.0-81.0); PLATELET COUNT (AUTO) 187 /CMM (150-450); RDW COEFFICIENT OF VARIATION 12.8 (11.5-15.0); RED BLOOD CELL COUNT(AUTO) 4.58 MIL/uL (4.5-6.0); WHITE BLOOD COUNT (AUTO) 8.8 K/uL (4.3-11.0)
[2017-07-22 07:30] LABS: ALANINE AMINOTRANSFERASE 17 U/L (12-78); ALBUMIN 3.5 g/dL (3.4-5.0); ALKALINE PHOSPHATASE 54 U/L (46-116); ASPARTATE AMINOTRANSFERASE 23 U/L (15-37); BILIRUBIN,TOTAL 0.5 mg/dL (0.2-1.0); CALCIUM, SERUM 9.3 mg/dL (8.5-10.1); CARBON DIOXIDE 29 mmol/L (21-32); CHLORIDE 107 mmol/L (98-107); GLUCOSE 90 mg/dL (74-106); MAGNESIUM 2.2 mg/dL (1.8-2.4); PHOSPHORUS 2.9 mg/dL (2.5-4.9); POTASSIUM 3.8 mmol/L (3.5-5.1); SODIUM SERUM 144 mmol/L (136-145); TOTAL PROTEIN, SERUM 7.7 g/dL (6.4-8.2); UREA NITROGEN, BLOOD 12 mg/dL (7-18)
--- NOTE | 2017-07-22 07:30 | NUR ---
MS RN OPENING NOTES RECEIVED PATIENT IN STABLE CONDITION. IN NO APPARENT DISTRESS. BEDSIDE RAILS ARE UPX2. BED IS LOCKED AND LOWERED. SITTER IS AT BEDSIDE. CALL LIGHT IS WITHIN REACH. WILL CONTINUE TO MONITOR.
[2017-07-22 07:42] LABS: TROPONIN I < 0.017 ng/mL (0.00-0.056)
[2017-07-22 08:00] VITALS: BP 113/56
[2017-07-22] MEDS: FAMOTIDINE (20 MG) 20 MG TABLET PO SCH (08:07)
[2017-07-22] MEDS: ASPIRIN 81 MG TAB.CHEW PO SCH ×2 (08:07→08:08)
[2017-07-22] MEDS: ATORVASTATIN 10 MG TABLET PO SCH (08:07)
[2017-07-22 08:08] VITALS: BP 116/76
[2017-07-22] MEDS: LEVETIRACETAM SOL (5 ML) 100 MG/ML UDC PO SCH (08:08)
[2017-07-22] MEDS: CARVEDILOL 3.125 MG TABLET PO SCH (08:08)
--- NOTE | 2017-07-22 08:12 | NUR ---
PATIENT GRIMACING AND RESTLESS. GAVE PATIENT MORPHINE 2MG IV.
[2017-07-22 10:31] LABS: EOSINOPHILS % (MANUAL) 15 % (0-4); LYMPHOCYTES % (MANUAL) 15 % (16-48); MONOCYTES % (MANUAL) 5 % (0-11.0); NEUTROPHILS % (MANUAL) 65 (42-76)
--- NOTE | 2017-07-22 15:36 | NUR ---
DISCHARGE NOTES PATIENT DISCHARGED IN STABLE CONDITION. IN NO APPARENT DISTRESS. ALL NEEDS WERE MET. IV LINE WAS REMOVED. ID BAND WAS REMOVED. VITAL SIGNS WITHIN NORMAL LIMITS. [facility] CALLED [phone]. REPORT GIVEN TO OPAL VINCENT. PATIENT WILL BE GOING TO ROOM 240. PATIENT TAKEN SAFELY BY PARAMEDICS TEAM VIA AMBULANCE.
== END 2017-07-22 15:30 | DRG 53 ==
LOC: ER 17:40 → TELE 21:40 → MED 07-20 08:29
DX: G40.909 Epilepsy, unspecified, not intractable, without status epilepticus (principal); I21.A1 Myocardial infarction type 2; G93.49 Other encephalopathy; E78.5 Hyperlipidemia, unspecified; E87.6 Hypokalemia; D72.829 Elevated white blood cell count, unspecified; I69.398 Other sequelae of cerebral infarction; K21.9 Gastro-esophageal reflux disease without esophagitis; M19.90 Unspecified osteoarthritis, unspecified site; E53.8 Deficiency of other specified B group vitamins; D64.9 Anemia, unspecified; I69.320 Aphasia following cerebral infarction; I69.391 Dysphagia following cerebral infarction; R13.10 Dysphagia, unspecified; Z95.0 Presence of cardiac pacemaker; I50.30 Unspecified diastolic (congestive) heart failure
CPT/HCPCS: 36415; 70450-TC; 71045-TC; 80048-TC; 80053-TC; 80061-TC; 80076-TC; 80185-TC; 80305; 81000-TC; 82306; 82728-TC; 82962-TC; 83540-TC; 83735-TC; 83880; 84100-TC; 84439-TC; 84443-TC; 84484-TC; 85025-TC; 87081-TC; 92611-TC; 93307-TC; A4606; J1165; J1650; J1940; J1953; J2060; J2270; J7030; J7042; Z7610